=== PATIENT | male | born 1960 | race Two or more races ===

== ENCOUNTER 2021-03-03 01:05 | Inpatient (IN) | payer OTHER ==
[~2021-03-03] VITALS: Ht 170.2 cm; Wt 58.1 kg
[~2021-03-03 01:05] MED LIST: METH10T PO
[2021-03-03] MEDS ORDERED: LORazepam 2MG/ML-1ML VIAL IV ONE (01:30)
[2021-03-03] MEDS ORDERED: METHADONE HCL 10 MG TAB PO ONE (01:30)
[2021-03-03] MEDS ORDERED: MORPHINE SULFATE INJECTION 2 MG/2 ML SYRG IV ONE (01:30)
[2021-03-03 05:55] LABS: Basophils # (auto) 0.1 10 ^3/uL (0-0.2); Basophils % (auto) 0.5 % (0.0-2.0); Eosinophils # (auto) 0.4 10 ^3/uL (0-0.8); Eosinophils % (auto) 2.9 % (0.0-7.0); Hematocrit 45.5 % (41.0-53.0); Hemoglobin 14.8 g/dL (13.5-17.5); Lymphocytes # (auto) 1.2 10 ^3/uL (0.4-5.4); Lymphocytes % (auto) 8.9 % (10.0-50.0); Mean Corpuscular Hemoglobin 29.3 pg (28.0-32.0); Mean Corpuscular Hgb Conc. 32.4 g/dL (32.0-36.0); Mean Corpuscular Volume 90.5 fL (80.0-100.0); Monocytes # (auto) 0.7 10 ^3/uL (0-1.3); Monocytes % (auto) 5.3 % (0.0-12.0); Neutrophils # (auto) 11.3 10 ^3/uL (1.6-8.6); Neutrophils % (auto) 82.4 % (37.0-80.0); Red Blood Cells 5.04 10^6/uL (4.5-5.90); Red Cell Distribution Width 16.5 % (11.8-14.3); White Blood Cell 13.8 10^3/uL (4.4-10.8)
[2021-03-03 06:14] LABS: Potassium 4.4 mmol/L (3.5-5.1)
[2021-03-03 06:18] LABS: Albumin 2.1 g/dL (3.4-5.0); BUN/Creatinine Ratio 50.8; Calcium 8.6 mg/dL (8.5-10.1)
[2021-03-03 06:25] LABS: Blood Alcohol < 3.0 mg/dL (0-5)
[2021-03-03] MEDS ORDERED: IBUPROFEN 100MG/5ML ORAL SUSP 100 MG/5 ML UD GT PRN (06:45)
[2021-03-03] MEDS ORDERED: ONDANSETRON HCL 4 MG/2 ML VIAL IV PRN (06:45)
[2021-03-03] MEDS ORDERED: NITROGLYCERIN 0.4 MG SL TAB SL PRN (06:45)
[2021-03-03] MEDS ORDERED: DOCUSATE SOD 100 MG CAP PO PRN (06:45)
[2021-03-03] MEDS ORDERED: MORPHINE SULFATE INJECTION 2 MG/2 ML SYRG IV PRN (06:45)
[2021-03-03] MEDS ORDERED: ALBUMIN 25% 50 ML IV ONE (06:45)
[2021-03-03] MEDS: cefTRIAXone 1GM/50ML D5W 50 ML IV SCH (08:52)
[2021-03-03] MEDS: D5W/SOD CHLO 0.9% 1,000 ML IV SCH (09:15)
[2021-03-03 09:44] LABS: Urine Bacteria NONE SEEN /hpf (None Seen); Urine Blood Negative /uL (Negative); Urine Hyaline Cast MOD /lpf (0 - 2); Urine Mucus FEW (None Seen); Urine Specific Gravity 1.023 (1.001-1.035); Urine WBC 3 /hpf (0 - 3)
[2021-03-03 09:56] LABS: Alcohol, Urine < 3.0 mg/dL (0-10); Amphetamine Screen, Urine NEGATIVE (NEGATIVE); Barbiturate Scree,Urine NEGATIVE (NEGATIVE); Benzodiazephine Screen, Urine NEGATIVE (NEGATIVE); Cocaine Screen, Urine NEGATIVE (NEGATIVE); Opiate Scree,Urine POSITIVE (NEGATIVE); Phencyclidine Screen, Urine NEGATIVE (NEGATIVE)
[2021-03-03] MEDS: ASCORBIC ACID 500 MG TAB PO SCH ×2 (10:00→22:33)
[2021-03-03] MEDS: FAMOTIDINE 20 MG TAB PO SCH (10:00)
[2021-03-03] MEDS: MULTIPLE VITAMIN TAB PO SCH (10:00)
[2021-03-03] MEDS ORDERED: METHADONE HCL 10 MG TAB PO SCH (10:00)
[2021-03-03] MEDS: LACTULOSE 20Gm/30ML SOLN PO SCH (10:00)
[2021-03-03] MEDS: ZINC SULFATE 220mg CAP or TAB PO SCH (10:00)
[2021-03-03 10:05] LABS: Cannabinoid Screen, Urine POSITIVE (NEGATIVE)
[2021-03-03] MEDS: HEPARIN SODIUM (PORCINE) 5000 UNITS/ML 1ML VIAL SC SCH ×2 (10:25→22:33)
[2021-03-03 10:50] VITALS: BP 116/80
[2021-03-03 13:00] VITALS: BP_SYST 124; BP_SYST 150; BP_DIAS 85; BP_DIAS 88
[2021-03-03 17:00] VITALS: BP 124/52
[2021-03-03 22:00] VITALS: BP 123/78
[2021-03-04] MEDS: D5W/SOD CHLO 0.9% 1,000 ML IV SCH ×2 (03:45→22:45)
[2021-03-04 05:00] VITALS: BP 147/89
[2021-03-04 07:03] LABS: Basophils # (auto) 0.1 10 ^3/uL (0-0.2); Basophils % (auto) 0.9 % (0.0-2.0); Eosinophils # (auto) 0.4 10 ^3/uL (0-0.8); Eosinophils % (auto) 2.5 % (0.0-7.0); Hematocrit 40.8 % (41.0-53.0); Hemoglobin 13.8 g/dL (13.5-17.5); Lymphocytes # (auto) 0.9 10 ^3/uL (0.4-5.4); Lymphocytes % (auto) 6.6 % (10.0-50.0); Mean Corpuscular Hemoglobin 30.3 pg (28.0-32.0); Mean Corpuscular Hgb Conc. 33.8 g/dL (32.0-36.0); Mean Corpuscular Volume 89.5 fL (80.0-100.0); Monocytes # (auto) 0.6 10 ^3/uL (0-1.3); Monocytes % (auto) 4.4 % (0.0-12.0); Neutrophils % (auto) 85.6 % (37.0-80.0); Nucleated Red Blood Cells % 0.1 %; Red Blood Cells 4.56 10^6/uL (4.5-5.90); Red Cell Distribution Width 16.1 % (11.8-14.3)
[2021-03-04 07:32] LABS: Albumin 2.3 g/dL (3.4-5.0); Calcium 8.4 mg/dL (8.5-10.1); Potassium 4.6 mmol/L (3.5-5.1)
[2021-03-04 07:35] LABS: BUN/Creatinine Ratio 45.9; Bilirubin, Total 3.8 mg/dL (0.2-1.0); Total Protein 6.8 g/dL (6.4-8.2)
[2021-03-04] MEDS: METHADONE HCL 10 MG TAB PO SCH (07:54)
[2021-03-04 09:00] VITALS: BP 119/72
[2021-03-04] MEDS: cefTRIAXone 1GM/50ML D5W 50 ML IV SCH (12:09)
[2021-03-04] MEDS: MULTIPLE VITAMIN TAB PO SCH (12:09)
[2021-03-04] MEDS: ASCORBIC ACID 500 MG TAB PO SCH (12:09)
[2021-03-04] MEDS: ZINC SULFATE 220mg CAP or TAB PO SCH (12:09)
[2021-03-04] MEDS: FAMOTIDINE 20 MG TAB PO SCH (12:09)
[2021-03-04] MEDS: LACTULOSE 20Gm/30ML SOLN PO SCH (12:10)
[2021-03-04] MEDS: HEPARIN SODIUM (PORCINE) 5000 UNITS/ML 1ML VIAL SC SCH ×2 (12:13→21:20)
[2021-03-04 13:00] VITALS: BP 122/79
[2021-03-04 17:00] VITALS: BP 146/69
[2021-03-04] MEDS: MORPHINE SULFATE 4 MG/ML SYR/VIAL IV PRN (18:11)
[2021-03-04 22:00] VITALS: BP 117/84
[2021-03-05] VITALS (13 sets, daily range): BP systolic 104–140; BP diastolic 73–87
[2021-03-05] MEDS: METHADONE HCL 10 MG TAB PO SCH (06:26)
[2021-03-05 08:33] LABS: INR 1.14 (0.9-1.15); Partial Thromboplastin Time 30.7 sec (23.0-31.2)
[2021-03-05 08:39] LABS: Albumin 2.3 g/dL (3.4-5.0); Anion Gap 11 (5-15); Blood Urea Nitrogen 69 mg/dL (7-18); Calcium 8.3 mg/dL (8.5-10.1); Carbon Dioxide 17 mmol/L (21-32); Chloride 106 mmol/L (98-107); Glucose 84 mg/dL (74-106); Potassium 4.6 mmol/L (3.5-5.1); Sodium 134 mmol/L (136-145)
[2021-03-05 08:42] LABS: Alanine Aminotransferase 72 U/L (16-61); Alkaline Phosphatase 713 U/L (45-117); Aspartate Aminotransferase 146 U/L (15-37); BUN/Creatinine Ratio 40.4; Bilirubin, Total 4.1 mg/dL (0.2-1.0); GFR African American 52 mL/min; GFR Non-African American 43 mL/min; Total Protein 6.8 g/dL (6.4-8.2)
[2021-03-05] MEDS: HEPARIN SODIUM (PORCINE) 5000 UNITS/ML 1ML VIAL SC SCH ×2 (10:00→22:42)
[2021-03-05] MEDS ORDERED: ALBUMIN 25% 0 ML IV ONE (11:52)
[2021-03-05] MEDS: LACTULOSE 20Gm/30ML SOLN PO SCH (13:39)
[2021-03-05] MEDS: cefTRIAXone 1GM/50ML D5W 50 ML IV SCH (13:39)
[2021-03-05] MEDS: FAMOTIDINE 20 MG TAB PO SCH (13:39)
[2021-03-05] MEDS: MULTIPLE VITAMIN TAB PO SCH (13:39)
[2021-03-05] MEDS: MORPHINE SULFATE 4 MG/ML SYR/VIAL IV PRN (13:56)
[2021-03-05] MEDS ORDERED: ALBUMIN 25% 100 ML IV ONE (14:45)
[2021-03-05] MEDS: LORazepam 2MG/ML-1ML VIAL IV PRN ×2 (17:12→23:29)
[2021-03-05] MEDS: D5W/SOD CHLO 0.9% 1,000 ML IV SCH (18:52)
[2021-03-06 05:00] VITALS: BP 116/77
[2021-03-06] MEDS: METHADONE HCL 10 MG TAB PO SCH (06:08)
[2021-03-06] MEDS: cefTRIAXone 1GM/50ML D5W 50 ML IV SCH (08:30)
[2021-03-06 09:00] VITALS: BP 107/79
[2021-03-06] MEDS: LACTULOSE 20Gm/30ML SOLN PO SCH (10:00)
[2021-03-06] MEDS: MULTIPLE VITAMIN TAB PO SCH (11:09)
[2021-03-06] MEDS: FAMOTIDINE 20 MG TAB PO SCH (11:09)
[2021-03-06] MEDS: HEPARIN SODIUM (PORCINE) 5000 UNITS/ML 1ML VIAL SC SCH ×2 (11:10→22:33)
[2021-03-06 13:00] VITALS: BP 114/77
[2021-03-06] MEDS: LORazepam 2MG/ML-1ML VIAL IV PRN (13:45)
[2021-03-06 17:00] VITALS: BP 106/70
[2021-03-06] MEDS: D5W/SOD CHLO 0.9% 1,000 ML IV SCH (17:11)
[2021-03-06 21:00] VITALS: BP 120/68
[2021-03-06 22:00] VITALS: BP 120/68
[2021-03-07 05:00] VITALS: BP 122/58
[2021-03-07] MEDS: METHADONE HCL 10 MG TAB PO SCH (06:39)
[2021-03-07 09:00] VITALS: BP 128/69
[2021-03-07] MEDS: LACTULOSE 20Gm/30ML SOLN PO SCH (10:00)
[2021-03-07] MEDS: HEPARIN SODIUM (PORCINE) 5000 UNITS/ML 1ML VIAL SC SCH ×2 (10:00→21:50)
[2021-03-07] MEDS: FAMOTIDINE 20 MG TAB PO SCH (10:00)
[2021-03-07] MEDS: MULTIPLE VITAMIN TAB PO SCH (10:00)
[2021-03-07 13:00] VITALS: BP 130/64
[2021-03-07] MEDS ORDERED: FAMO-12 PO (16:28)
[2021-03-07 17:00] VITALS: BP 136/64
[2021-03-07 22:00] VITALS: BP 116/70
[2021-03-07] MEDS: MORPHINE SULFATE 4 MG/ML SYR/VIAL IV PRN (22:09)
[2021-03-08] MEDS: LORazepam 2MG/ML-1ML VIAL IV PRN ×3 (00:17→14:25)
[2021-03-08 05:00] VITALS: BP 104/70
[2021-03-08] MEDS: METHADONE HCL 10 MG TAB PO SCH (06:15)
[2021-03-08 08:00] VITALS: BP 127/52
[2021-03-08] MEDS: MORPHINE SULFATE 4 MG/ML SYR/VIAL IV PRN (08:46)
[2021-03-08 08:56] VITALS: BP 127/52
[2021-03-08] MEDS: FAMOTIDINE 20 MG TAB PO SCH (10:00)
[2021-03-08] MEDS: MULTIPLE VITAMIN TAB PO SCH (10:00)
[2021-03-08] MEDS: LACTULOSE 20Gm/30ML SOLN PO SCH (10:00)
[2021-03-08 12:00] VITALS: BP 112/64
[2021-03-08] MEDS: HEPARIN SODIUM (PORCINE) 5000 UNITS/ML 1ML VIAL SC SCH (12:53)
[2021-03-08 17:00] VITALS: BP 105/62
[2021-03-08 19:04] VITALS: BP 127/52
== END 2021-03-08 20:15 ==
LOC: EDBD 01:05 → ER 01:18 → TELE 06:38 → TELE-CENTR 10:51 → CENTRAL 03-04 15:15
PROVIDERS: ADMIT Nurse Practitioner Family; ATTEND Internal Medicine Pulmonary Disease
PROC: 0W9G3ZZ Drainage of Peritoneal Cavity, Percutaneous Approach (ICD-10-PCS; principal; 2021-03-05)
DX: K74.60 Unspecified cirrhosis of liver (principal); N17.0 Acute kidney failure with tubular necrosis; G92 Toxic encephalopathy; C22.9 Malignant neoplasm of liver, not specified as primary or secondary; K76.6 Portal hypertension; E88.09 Other disorders of plasma-protein metabolism, not elsewhere classified; F20.9 Schizophrenia, unspecified; Z20.822 Contact with and (suspected) exposure to COVID-19; G89.4 Chronic pain syndrome; Z51.5 Encounter for palliative care; R62.7 Adult failure to thrive; R79.89 Other specified abnormal findings of blood chemistry; F32.9 Major depressive disorder, single episode, unspecified; R94.5 Abnormal results of liver function studies; D72.829 Elevated white blood cell count, unspecified; I10 Essential (primary) hypertension; Z66 Do not resuscitate; R18.8 Other ascites; Z85.05 Personal history of malignant neoplasm of liver
CPT/HCPCS: 36415; 71045; 76700; 76942; 80053; 80307; 80320; 81001; 82140; 84484; 85025; 85049; 85610; 85730; 87040; 87081; 87426; 92610; 93005; 96365; 96367; 96375; G0378; J0696; J7042; P9047